=== PATIENT | male | born 1985 | race Caucasian/White ===

== ENCOUNTER 2016-07-18 08:30 | Outpatient (CLI) | payer OTHER | END 2016-07-18 08:31 | disposition home or self-care (01) | DX: M51.37 Other intervertebral disc degeneration, lumbosacral region (principal); M47.897 Other spondylosis, lumbosacral region ==

== ENCOUNTER 2016-09-27 15:44 | Emergency (ER) | payer OTHER ==
[2016-09-27] MEDS ORDERED: KETOROLAC 30 MG/ML VIAL ONE (16:51)
[2016-09-27] MEDS ORDERED: diphenhydrAMINE INJ 50 MG/ML VIAL ONE (16:51)
[2016-09-27] MEDS ORDERED: PROCHLORPERAZINE 10 MG/2 ML VIAL ONE (16:51)
[2016-09-27] MEDS: SODIUM CHLORIDE 0.9% 1,000 ML IV ONE (17:03)
[2016-09-27] MEDS: PROCHLORPERAZINE 10 MG/2 ML VIAL IVP STA (17:03)
[2016-09-27] MEDS: KETOROLAC 60 MG/2 ML VIAL IVP STA (17:03)
[2016-09-27] MEDS: diphenhydrAMINE INJ 50 MG/ML VIAL IVP STA (17:03)
--- NOTE | 2016-09-27 17:09 | ED Physician Documentation ---
History of Present Illness - Stated complaint Stated Complaint: WRIGHT - Chief complaint Chief Complaint: General - Additonal information Additional information: hx from pt WRIGHT c/w hx of migraines states he gets migraines every day about once a yr so severe needs to come to ER for "the cocktail" this WRIGHT is L sided throbbing , photophobic, no NV numbness or weakness no trauma no fever or stiff neck doubt CO - has alarms rest of family fine Review of Systems Constitutional: denies: Fever Eyes: reports: Photophobia GI: denies: Nausea, Vomiting Neurologic: reports: Headache. denies: Focal weakness, Numbness Immunocompromised: denies: Immunocompromised PD PAST MEDICAL HISTORY - Past Medical History Neuro: Headache/migraine - Past Surgical History Past Surgical History: Yes General: Appendectomy Ortho: Arthroscopic surgery - Present Medications Home Medications: Ambulatory Orders Medication Instructions Recorded Confirmed Sumatriptan [Imitrex] 100 mg PO ONCE PRN 04/07/15 03/02/16 HYDROcod/ACETAM 5/325 [[place] 5/325] 1 - 2 ea PO Q6H PRN #15 tablet 03/02/16 Ibuprofen [Motrin] 800 mg PO Q8H PRN #30 tablet 03/02/16 - Allergies Allergies/Adverse Reactions: Allergies Allergy/AdvReac Type Severity Reaction Status Date / Time No Known Drug Allergies Allergy Verified 03/02/16 15:45 - Social History Does the pt smoke?: No Smoking Status: Never smoker Does the pt drink ETOH?: Yes Does the pt have substance abuse?: No - Immunizations Immunizations are current?: Yes PD ED PE NORMAL - Vitals Vital signs reviewed: Yes - General General: Alert and oriented X 3 - HEENT HEENT: PERRL, EOMI, Other (globes soft, no TA TTP, photophobic) - Neck Neck: Supple, no meningeal sign - Cardiac Cardiac: RRR - Respiratory Respiratory: No respiratory distress, Clear bilaterally - Neuro Neuro: Alert and oriented X 3, agency manager 2-12 intact, No motor deficit, No sensory deficit, Normal speech - Psych Psych: Normal mood Results - Vitals Vitals: Vital Signs - 24 hr 09/27/16 09/27/16 15:47 17:50 Temperature 36.8 C Heart Rate 73 77 Respiratory 18 16 Rate Blood Pressure 150/97 H 147/81 H O2 Saturation 98 97 Oxygen O2 Source Room air Departure - Departure Disposition: Home, Self Care Clinical Impression: Migraine Qualifiers: Migraine type: unspecified Status migrainosus presence: without status migrainosus Intractability: not intractable Qualified Code(s): G43.909 - Migraine, unspecified, not intractable, without status migrainosus Condition: Good Instructions: ED Headache Migraine Comments: Continue your usual home medications. Follow up with your PMD as needed Return if worse And please follow up with your PMD to recheck your blood pressure - it was elevated today Forms: Activity restrictions
[2016-09-27 17:51] VITALS: BP 147/81
== END 2016-09-27 18:35 | disposition home or self-care (01) ==
LOC: ED 15:44
DX: G43.909 Migraine, unspecified, not intractable, without status migrainosus (principal)
CPT/HCPCS: 96374; 96375; 99283; 99284

== ENCOUNTER 2016-10-12 08:50 | Emergency (ER) | payer OTHER ==
[2016-10-12] MEDS ORDERED: DEXAMETHASONE 10 MG/ML VIAL PO STA (09:11)
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
[2016-10-12] MEDS ORDERED: DEXAMETHASONE 10 MG/ML VIAL ONE (09:16)
[2016-10-12 09:32] LABS: RAPID STREP SCREEN REAGENT QC YELLOW (YELLOW)
[2016-10-12 10:00] VITALS: BP 142/79
== END 2016-10-12 09:59 | disposition home or self-care (01) ==
LOC: ED 08:50
DX: H66.003 Acute suppurative otitis media without spontaneous rupture of ear drum, bilateral (principal); R03.0 Elevated blood-pressure reading, without diagnosis of hypertension
CPT/HCPCS: 87070; 87430; 99283

== ENCOUNTER 2017-06-17 16:03 | Emergency (ER) | payer OTHER ==
[2017-06-17 17:05] LABS: BILIRUBIN,URINE NEGATIVE (NEGATIVE); GLUCOSE, URINE (UA) NEGATIVE (NEGATIVE); KETONES,URINE (UA) NEGATIVE (NEGATIVE); LEUKOCYTE ESTERASE, URINE NEGATIVE (NEGATIVE); NITRITE,URINE NEGATIVE (NEGATIVE); OCCULT BLOOD,URINE LARGE (NEGATIVE); PH,URINE 6.5 PH (5.0-7.5); PROTEIN,URINE 30 mg/dL (NEGATIVE); UROBILINOGEN,URINE 0.2 (NORMAL) E.U./dL (NORMAL)
[2017-06-17 17:08] LABS: BACTERIA,URINE Rare /HPF (None Seen); CLARITY,URINE CLOUDY (CLEAR); RBC,URINE TNTC /HPF (0-5); SQUAMOUS EPITHELIAL CELL,UR RARE Squamous (<= Few)
--- NOTE | 2017-06-17 17:22 | ED Physician Documentation ---
PD HPI ABD PAIN - Stated complaint Stated Complaint: MALE - Chief complaint Chief Complaint: Abd Pain - History obtained from History obtained from: Patient - History of Present Illness Timing - onset: Today Timing - duration: Hours Timing - details: Abrupt onset, Still present Quality: Other (had onset of hematuria, grossly with some dripping of blood after done urinating. Did not have pain initially but then with some burning with urination after voided couple of times.). No: Cramping, Aching, Fullness/ distended Associated symptoms: Hematuria. No: Fever, Nausea, Vomiting, Dysuria, Near syncope / syncope Similar symptoms before: Has not had sx before Review of Systems Constitutional: denies: Fever, Chills Nose: denies: Rhinorrhea / runny nose, Congestion, Epistaxis Throat: denies: Sore throat Cardiac: denies: Chest pain / pressure, Palpitations Respiratory: denies: Cough GI: denies: Abdominal Pain, Nausea, Vomiting, Diarrhea, Bloody / black stool : reports: Hematuria. denies: Dysuria, Frequency, Discharge Skin: denies: Rash, Lesions PD PAST MEDICAL HISTORY - Past Medical History Past Medical History: Yes Neuro: Headache/migraine - Past Surgical History Past Surgical History: Yes General: Appendectomy Ortho: Arthroscopic surgery - Present Medications Home Medications: Ambulatory Orders Medication Instructions Recorded Confirmed SUMAtriptan [Imitrex] 100 mg PO ONCE PRN 04/07/15 10/12/16 Sulfamethox/Trimeth 800/160 1 each PO BID #14 tablet 06/17/17 [Bactrim Ds 800/160] - Allergies Allergies/Adverse Reactions: Allergies Allergy/AdvReac Type Severity Reaction Status Date / Time No Known Drug Allergies Allergy Verified 06/17/17 16:13 - Social History Does the pt smoke?: No Smoking Status: Never smoker Does the pt drink ETOH?: Yes Does the pt have substance abuse?: No - Immunizations Immunizations are current?: Yes - POLST Patient has POLST: No PD ED PE NORMAL - Vitals Vital signs reviewed: Yes - General General: Alert and oriented X 3, No acute distress, Well developed/nourished - HEENT HEENT: Pharynx benign - Neck Neck: Supple, no meningeal sign, No adenopathy - Cardiac Cardiac: RRR, No murmur - Respiratory Respiratory: Clear bilaterally - Abdomen Abdomen: Soft, Non tender - Male Male : Other (normal external genitalia and meatus. ) - Back Back: No CVA TTP - Derm Derm: Normal color, Warm and dry, No rash - Neuro Neuro: Alert and oriented X 3, No motor deficit, Normal speech Results - Vitals Vitals: Oxygen O2 Source Room air - Labs Labs: Laboratory Tests 06/17/17 16:45 Urine Color RED/BLOODY Urine Clarity CLOUDY Urine pH 6.5 Ur Specific [place] 1.010 Urine Protein 30 H Urine Glucose (UA) NEGATIVE Urine Ketones NEGATIVE Urine Occult Blood LARGE H Urine Nitrite NEGATIVE Urine Bilirubin NEGATIVE Urine Urobilinogen 0.2 (NORMAL) Ur Leukocyte Esterase NEGATIVE Urine RBC TNTC H Urine WBC 0-3 Ur Squamous Epith Cells RARE Squamous Urine Bacteria Rare Ur Microscopic Review INDICATED Urine Culture Comments NOT INDICATED - Rads (name of study) KUB CT Radiology: Prelim report reviewed (no acute process seen) PD MEDICAL DECISION MAKING - ED course Complexity details: reviewed results, considered differential (hematuria with some burning feeling after bleeding started. Has gross hematuria. No flank pain. Got CT toe augusto for tumors/stones/etc. Normal CT. Presume either indolent infection or some structural process such as tumor, polyp, ulceration. Referred to Urology for further testing. Presume the bleeding will taper and stop on its own today/tomorrow. ), d/w patient Departure - Departure Disposition: 01 Home, Self Care Clinical Impression: Hematuria Qualifiers: Hematuria type: gross Qualified Code(s): R31.0 - Gross hematuria Condition: Stable Record reviewed to determine appropriate education?: Yes Instructions: ED Hematuria Follow-Up: Naseem Perdue MD [Primary Care Provider] - [facility] [Provider Group] Prescriptions: Sulfamethox/Trimeth 800/160 [Bactrim Ds 800/160] 1 each PO BID #14 tablet Comments: Your urine does not show obvious infection but that will still be the most common cause of blood in the urine. Treated with Bactrim twice daily for a week for this possibility. Your CT scan did not show any obvious stones tumors or other abnormalities in the kidney or ureter or bladder. Presume the bleeding is coming from the bladder and this may be something mechanical like a polyp or such. Most commonly the bleeding will stop within a day and heal up from most of those type causes. However would make sense to follow-up with your urologist for further evaluation since the answer is not obvious at this time. Discharge Date/Time: 06/17/17 18:36
--- NOTE | 2017-06-17 18:17 | CT Report ---
EXAM: CT ABDOMEN AND PELVIS (CT KUB) EXAM DATE: 06/17/2017 06:03 PM. CLINICAL HISTORY: Hematuria onset today. COMPARISONS: None. TECHNIQUE: Routine axial helical CT imaging was performed through the abdomen and pelvis without IV c ontrast. Reconstructions: Coronal and sagittal. In accordance with CT protocol optimization, one or more of the following dose reduction techniques w ere utilized for this exam: automated exposure control, adjustment of mA and/or KV based on patient s ize, or use of iterative reconstructive technique. FINDINGS: Lung Bases: Unremarkable. Right Kidney/Ureter: No stones, hydronephrosis, or hydroureter. No perinephric fat stranding. Left Kidney/Ureter: No stones, hydronephrosis, or hydroureter. No perinephric fat stranding. Other Solid Organs: Noncontrast images of the solid organs are grossly unremarkable. Gallbladder/Bile Ducts: Contracted. No ductal dilation. Peritoneal Cavity: No free fluid, free air or yogi adenopathy. Bowel is grossly unremarkable. Pelvic Organs: No bladder stones or wall thickening. Noncontrast images of the visualized pelvic orga ns are unremarkable. Vasculature: Unremarkable. Other: None. IMPRESSION: No urinary tract stones or obstruction. [facility] Referring Provider Line: [phone] SITE ID: [id number]
[2017-06-17] MEDS ORDERED: SULFAMETH/TRIMETH DS 800/160 MG TABLET PO STA (18:26)
[2017-06-17 18:35] VITALS: BP 134/79
== END 2017-06-17 18:36 | disposition home or self-care (01) ==
LOC: ED 16:03
DX: R31.0 Gross hematuria (principal); R30.0 Dysuria
CPT/HCPCS: 74176; 81001; 99283; A9270; 81003; 87086

== ENCOUNTER 2018-02-28 20:40 | Emergency (ER) | payer OTHER ==
[2018-02-28] MEDS ORDERED: LIDOCAINE-EPINEPH-TETRACAINE 3 ML SYRINGE TOP STA (21:17)
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
[2018-02-28 22:00] VITALS: BP 158/98
== END 2018-02-28 22:02 | disposition home or self-care (01) ==
LOC: ED 20:40
DX: S01.01XA Laceration without foreign body of scalp, initial encounter (principal); S09.90XA Unspecified injury of head, initial encounter; W27.8XXA Contact with other nonpowered hand tool, initial encounter; Y92.009 Unspecified place in unspecified non-institutional (private) residence as the place of occurrence of the external cause
CPT/HCPCS: 12002; 99282; 99283

== ENCOUNTER 2018-03-13 10:49 | Emergency (ER) | payer OTHER ==
[2018-03-13 10:59] VITALS: BP 151/90
--- NOTE | 2018-03-13 11:14 | ED Physician Documentation ---
PD HPI WOUND RECHECK - Stated complaint Stated Complaint: STAPLE REMOVAL - Chief complaint Chief Complaint: Wound - Histroy obtained from History obtained from: Patient - History of Present Illness Location: Scalp Recently seen: Emergency Dept (13 days ago.) - Additional information Additional information: The patient is a 32-year-old male who presents for removal of bhakti from his scalp. He was seen here 13 days ago for scalp laceration. He has no complaints. PD PAST MEDICAL HISTORY - Past Medical History Past Medical History: No Cardiovascular: None Respiratory: None Neuro: None Endocrine/Autoimmune: None GI: None : None HEENT: None Psych: None Musculoskeletal: None Derm: None - Past Surgical History Past Surgical History: Yes General: Appendectomy Ortho: Rotator cuff repair, Arthroscopic surgery - Present Medications Home Medications: Ambulatory Orders Medication Instructions Recorded Confirmed SUMAtriptan [Imitrex] 100 mg PO ONCE PRN 04/07/15 10/12/16 Sulfamethox/Trimeth 800/160 1 each PO BID #14 tablet 06/17/17 [Bactrim Ds 800/160] - Allergies Allergies/Adverse Reactions: Allergies Allergy/AdvReac Type Severity Reaction Status Date / Time No Known Drug Allergies Allergy Verified 02/28/18 20:50 - Social History Does the pt smoke?: No Smoking Status: Never smoker Does the pt drink ETOH?: Yes Does the pt have substance abuse?: No - Immunizations Immunizations are current?: Yes - POLST Patient has POLST: No PD ED PE NORMAL - Vitals Vital signs reviewed: Yes (hypertensive) - General General: Alert and oriented X 3, Well developed/nourished - HEENT HEENT: Other (Scalp wound is intact with bhakti, and appears to be healing well, with no sign of infection.) - Respiratory Respiratory: No respiratory distress - Neuro Neuro: Alert and oriented X 3, Normal speech Results - Vitals Vitals: Oxygen O2 Source Room air Procedures - Suture/staple Removal (location) scalp Suture/staple removal: # bhakti (3), No complications PD MEDICAL DECISION MAKING - ED course Complexity details: reviewed old records, d/w patient Departure - Departure Disposition: 01 Home, Self Care Clinical Impression: Removal of staple Condition: Stable Instructions: ED Stap Removal No Complication Follow-Up: [facility] [Provider Group] Discharge Date/Time: 03/13/18 11:16
== END 2018-03-13 11:16 | disposition home or self-care (01) ==
LOC: ED 10:49
DX: Z48.02 Encounter for removal of sutures (principal)
CPT/HCPCS: 99282

== ENCOUNTER 2018-05-21 08:13 | Emergency (ER) | payer OTHER ==
--- NOTE | 2018-05-21 09:51 | ED Physician Documentation ---
PD HPI CHEST PAIN - Stated complaint Stated Complaint: BACK PX - Chief complaint Chief Complaint: Back Pain - History obtained from History obtained from: Patient, Family - History of Present Illness Timing - onset: How many weeks ago (1) Timing - onset during: Light activity Timing - duration: Weeks (1) Timing - details: Gradual onset, Still present Quality: Sharp, Pain Location: Right chest Radiation: Back Improved by: Rest, Other (position) Worsened by: Exertion, Inspiration, Movement, Palpation, Position Associated symptoms: No: Shortness of air, Diaphoresis, Nausea, Vomiting, Feeling faint / dizzy, General Weakness, Palpitations, Cough Similar symptoms before: Has not had sx before Recently seen: Not recently seen - Additional information Additional information: Previously well 32-year-old male had injections to both of his shoulders done about 10 days ago. About 3 days later he began to develop pain in his right chest and back and this is worse with inspiration position and palpation. He was unable to get comfortable last night at all to sleep. He went to get out of his truck yesterday and experienced 9 out of 10 pain. He states that he has been soaking through work and he has not felt ill with this but has pain with certain movements and with any type of deep breathing. He denies any fever chills sweats cough or congestion. Review of Systems Constitutional: denies: Fever, Chills, Myalgias, Fatigue Eyes: denies: Decreased vision Ears: denies: Ear pain Nose: denies: Rhinorrhea / runny nose, Congestion Throat: denies: Sore throat Cardiac: reports: Chest pain / pressure. denies: Palpitations, Pedal edema, Calf pain Respiratory: denies: Dyspnea, Hemoptysis, Wheezing GI: denies: Abdominal Pain, Nausea, Vomiting : denies: Dysuria, Frequency PD PAST MEDICAL HISTORY - Past Medical History Cardiovascular: None Respiratory: None Neuro: None Endocrine/Autoimmune: None GI: None : None HEENT: None Psych: None Musculoskeletal: None Derm: None - Past Surgical History Past Surgical History: Yes General: Appendectomy Ortho: Rotator cuff repair, Arthroscopic surgery - Present Medications Home Medications: Ambulatory Orders Medication Instructions Recorded Confirmed Cyclobenzaprine [Flexeril] 10 mg PO TID PRN 05/21/18 05/21/18 Hydrocodone/Acetaminophen 1 - 2 each PO Q6H PRN #14 tablet 05/21/18 [Hydrocodon-Acetaminophen 5-325] Meloxicam 15 mg PO BID 05/21/18 05/21/18 - Allergies Allergies/Adverse Reactions: Allergies Allergy/AdvReac Type Severity Reaction Status Date / Time No Known Drug Allergies Allergy Verified 05/21/18 08:16 - Social History Does the pt smoke?: No Smoking Status: Never smoker Does the pt drink ETOH?: Yes Does the pt have substance abuse?: No - Immunizations Immunizations are current?: Yes - POLST Patient has POLST: No PD ED PE NORMAL - Vitals Vital signs reviewed: Yes (hypertensive ) - General General: Alert and oriented X 3, No acute distress, Well developed/nourished - HEENT HEENT: Atraumatic, PERRL, EOMI - Neck Neck: Supple, no meningeal sign, No bony TTP - Cardiac Cardiac: RRR, No murmur - Respiratory Respiratory: No respiratory distress, Other (right sided breath sounds are diminished left are clear) - Abdomen Abdomen: Soft, Non tender - Back Back: No CVA TTP, No spinal TTP - Derm Derm: Normal color, Warm and dry, No rash - Extremities Extremities: No deformity, No edema - Neuro Neuro: Alert and oriented X 3, 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 Clear lungs. No pneumothorax.), EMP read indepedently, See rad report PD MEDICAL DECISION MAKING - ED course Complexity details: considered differential, d/w patient, d/w family ED course: 32-year-old male with right-sided chest pain and diminished breath sounds on the right has a fracture of the sixth rib posterolaterally. 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 He is diagnosed with a rib fracture and will require 4-6 weeks off work. All of the work that he does is excessively physical and he will have a difficult time doing this. He is administered dexamethasone 10 mg orally and we will place him on some narcotic pain reliever. Departure - Departure Disposition: Home, Self Care Clinical Impression: Rib fracture Qualifiers: Encounter type: initial encounter Rib fracture type: single rib Fracture type: closed Laterality: right Qualified Code(s): S22.31XA - Fracture of one rib, right side, initial encounter for closed fracture Condition: Stable Instructions: ED Fx Rib Follow-Up: DANNIE TRINH DO [Primary Care Provider] - Prescriptions: Hydrocodone/Acetaminophen [Hydrocodon-Acetaminophen 5-325] 1 - 2 each PO Q6H PRN #14 tablet PRN Reason: pain Forms: Activity restrictions
[2018-05-21] MEDS ORDERED: DEXAMETHASONE 10 MG/ML VIAL PO STA (10:24)
--- NOTE | 2018-05-21 10:36 | XRAY Report ---
Reason: chest pain diminished breath sounds right Procedure Date: 05/21/2018 Accession Number: [id number] / [id number] Procedure: XR - Chest 2 View X-Ray CPT Code: 08096 FULL RESULT: EXAM: CHEST RADIOGRAPHY EXAM DATE: 05/21/2018 10:17 AM. CLINICAL HISTORY: Chest pain diminished breath sounds right. COMPARISON: 05/11/[address] TECHNIQUE: 2 views. FINDINGS: Lungs/Pleura: No focal opacities evident. No pleural effusion. No pneumothorax. Normal volumes. Mediastinum: Heart and mediastinal contours are unremarkable. Other: Right sixth rib fracture IMPRESSION: Right sixth rib fracture. Clear lungs. No pneumothorax. [facility]
[2018-05-21] MEDS ORDERED: CHERRY SYRUP 10 ML UDC PO ONE (10:53)
[2018-05-21 12:01] VITALS: BP 162/121
== END 2018-05-21 12:08 | disposition home or self-care (01) ==
LOC: ED 08:13
DX: S22.31XA Fracture of one rib, right side, initial encounter for closed fracture (principal); X50.9XXA Other and unspecified overexertion or strenuous movements or postures, initial encounter; Y99.0 Civilian activity done for income or pay
CPT/HCPCS: 1040M; 71046; 99283; A9270